=== PATIENT | female | born 1970 | race African-American/Black ===

== ENCOUNTER 2017-01-29 01:53 | Emergency (ER) | payer OTHER ==
[~2017-01-29] VITALS: Ht 167.6 cm; Wt 81.6 kg
[2017-01-29] MEDS ORDERED: LORazepam Inj 2mg/ml 1ml IV ONE (02:00)
[2017-01-29] MEDS: Ketorolac 30mg Inj IV ONE ×2 (02:00→02:07)
--- NOTE | 2017-01-29 02:06 | Emergency Room Report ---
History of Present Illness General Chief Complaint: Behavioral Complaint Source: Patient, EMS Present Illness HPI Is a 46-year-old female with no significant past medical history. She presents with chief complaint of vomiting and dizziness. She was at a bar and decided to eat an edible brownie that had marijuana in it. Afterward she started having vomiting and fell anxious. Said her body was numb and she felt dizzy. Denies any fever chills denies any suicidal thought homicidal thought. Never had marijuana before. No other complaint. Allergies: Coded Allergies: SULFAMETHOXAZOLE (Unverified Allergy, Unknown, 01/29/17) TRIMETHOPRIM (Unverified Allergy, Unknown, 01/29/17) Patient History Past Medical History: none, see triage record, old chart reviewed Past Surgical History: none Pertinent Family History: none Social History: Denies: smoking Last Menstrual Period: last month Now: No Immunizations: other Reviewed Nursing Documentation: PMH: Agreed, PSxH: Agreed Review of Systems Eye: Denies: blurred vision, eye pain ENT: Denies: ear pain, nose congestion, throat swelling Respiratory: Reports: shortness of breath, Denies: cough Cardiovascular: Denies: chest pain, palpitations Gastrointestinal: Reports: abdominal pain, nausea, vomiting, Denies: diarrhea Musculoskeletal: Denies: back pain, joint pain Skin: Denies: rash Neurological: Denies: headache, numbness Endocrine: Denies: increased thirst, increased urine Hematologic/Lymphatic: Denies: easy bruising All Other Systems: negative except mentioned in HPI Physical Exam Vital Signs Date Time Temp Pulse Resp B/P Pulse Ox O2 Delivery O2 Flow Rate FiO2 01/29/17 01:46 99.3 100 16 106/53 99 Room Air vitals normal Sp02 EP Interpretation: reviewed, normal General Appearance: well appearing, no apparent distress, alert Head: normocephalic, atraumatic Eyes: bilateral eye EOMI, bilateral eye PERRL ENT: hearing grossly normal, normal pharynx Neck: full range of motion, supple, no meningismus Respiratory: chest non-tender, lungs clear, normal breath sounds Cardiovascular #1: regular rate, rhythm, no murmur Gastrointestinal: normal bowel sounds, non tender, no mass, no organomegaly, no bruit, non-distended Musculoskeletal: back normal, gait/station normal, normal range of motion Psychiatric: anxious Skin: warm/dry Medical Decision Making Diagnostic Impression: Primary Impression: Nausea and vomiting Qualified Codes: R11.2 - Nausea with vomiting, unspecified Additional Impression: Adverse reaction to cannabis Qualified Codes: T40.7X5A - Adverse effect of cannabis (derivatives), initial encounter ER Course Patient with adverse reaction to cannabis resulting in vomiting and anxiety. She felt better now. We'll discharge home. Lab Results Impression labs are normal Last Vital Signs Date Time Temp Pulse Resp B/P Pulse Ox O2 Delivery O2 Flow Rate FiO2 01/29/17 01:46 99.3 100 16 106/53 99 Room Air Status: improved Disposition: HOME, SELF-CARE Condition: Stable Additional Instructions: abstain from marijuana. Followup with your Dr. in 2 to 3 days. Return if symptom worsen. ELDER KOVACS M.D. Jan 29, 2017 02:06
[2017-01-29 02:14] LABS: BASOPHILS % (AUTO) 1.6 % (0.0-2.0); EOSINOPHILS % (AUTO) 1.5 % (0.0-3.0); LYMPHOCYTES % (AUTO) 37.9 % (20.0-45.0); MEAN CORPUSCULAR VOLUME 88 FL (80-99); MEAN PLATELET VOLUME 6.7 FL (6.5-10.1); MONOCYTES % (AUTO) 9.6 % (1.0-10.0); NEUTROPHILS % (AUTO) 49.4 % (45.0-75.0); PLATELET COUNT 343 K/UL (150-450); RED BLOOD COUNT 5.04 M/UL (4.20-5.40); RED CELL DISTRIBUTION WIDTH 13.1 % (11.6-14.8); WHITE BLOOD COUNT 7.4 K/UL (4.8-10.8)
[2017-01-29 02:20] VITALS: BP 114/68
[2017-01-29 02:24] LABS: ANION GAP 15 (5-15); CALCIUM 9.2 mg/dL (8.6-10.2); CARBON DIOXIDE 25 mEQ/L (20-30); CHLORIDE 101 mEQ/L (98-107); CREATININE 0.9 mg/dL (0.5-0.9); GLOMERULAR FILTRATION RATE > 60 mL/min (>60); HEMOLYSIS 13; POTASSIUM 3.3 mEQ/L (3.4-4.9); SODIUM 141 mEQ/L (135-145)
[2017-01-29 04:45] VITALS: BP 110/64
[2017-01-29 05:05] VITALS: BP 110/64
== END 2017-01-29 05:05 | disposition home or self-care (01) ==
LOC: EDBD 01:53 → EMR 02:28
DX: R11.2 Nausea with vomiting, unspecified (principal); T40.7X5A Adverse effect of cannabis (derivatives), initial encounter; Z88.2 Allergy status to sulfonamides; Z88.1 Allergy status to other antibiotic agents; X58.XXXA Exposure to other specified factors, initial encounter; Y92.511 Restaurant or cafe as the place of occurrence of the external cause; Y99.8 Other external cause status
CPT/HCPCS: 36415; 80048; 85025; 96374; 96375; 99283; J2405